=== PATIENT | female | born 1990 | race Caucasian/White ===

== ENCOUNTER 2018-08-05 02:55 | Emergency (ER) | payer OTHER ==
[~2018-08-05] VITALS: Ht 172.7 cm; Wt 99.8 kg
[2018-08-05] MEDS ORDERED: METFORMIN HCL500 MG (03:06)
[2018-08-05] MEDS ORDERED: BIRTHCONTROL (03:08)
[2018-08-05] MEDS ORDERED: SPIROLACTONE (03:08)
[2018-08-05 04:07] VITALS: BP 136/79
== END 2018-08-05 04:07 | disposition home or self-care (01) ==
LOC: M.ERS 02:55
DX: S99.822A Other specified injuries of left foot, initial encounter (principal); X50.3XXA Overexertion from repetitive movements, initial encounter; Y93.89 Activity, other specified; Y92.89 Other specified places as the place of occurrence of the external cause; Y99.8 Other external cause status